=== PATIENT | male | born 1955 | race Caucasian/White ===

== ENCOUNTER 2020-12-01 18:13 | Emergency (ER) | payer MEDICARE, OTHER ==
[2020-12-01] MEDS ORDERED: Sodium Chloride 0.9% 2.5 ML Syringe FLUSH PRN (18:49)
[2020-12-01] MEDS ORDERED: Sodium Chloride 0.9% 10 ML Syringe FLUSH PRN (18:49)
--- NOTE | 2020-12-01 19:28 | EDM.PDOC ---
ED HPI GENERAL MEDICAL PROBLEM - General Chief Complaint: Abdominal Pain Stated Complaint: HERNIA Time Seen by Provider: 12/01/20 19:07 - History of Present Illness INITIAL COMMENTS - FREE TEXT/NARRATIVE: Patient presents with sudden onset of left groin pain followed by syncope. 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 The patient's family friend and And assistant loan processor was at the food truck. Patient was brought to the ED. Patient states that there was a large lump in his left groin consistent with hernia that is now since resolved. No vomiting or diarrhea. No fevers. Patient is scheduled to see his surgeon on the for evaluation of hernia. Patient denies any chest pain or shortness of breath. No recent fevers chills or infectious complaints. No known exacerbating or alleviating factors Lower Abdomen Pain Score (Numeric/FACES): 4 - Related Data Allergies Allergy/AdvReac Type Severity Reaction Status Date / Time No Known Allergies Allergy Verified 12/01/20 18:41 Home Meds: Home Meds atenoloL [Atenolol] 11/14/13 [History] atorvaSTATin [Lipitor] 20 mg PO DAILY 11/14/13 [History] Losartan Potassium [Cozaar] 50 mg PO DAILY 12/01/20 [History] Past Medical History Cardiovascular History: Reports: Hypertension - Past Surgical History GI Surgical History: Reports: Appendectomy Musculoskeletal Surgical History: Reports: Shoulder Surgery Other Musculoskeletal Surgeries/Procedures:: Surgery on right shoulder due to tennis elbow Social & Family History - Recreational Drug Use Recreational Drug Use: No ED ROS GENERAL - Review of Systems Review Of Systems: See Below Constitutional: Reports: No Symptoms. Denies: Fever Respiratory: Denies: Shortness of Breath Cardiovascular: Denies: Chest Pain, Palpitations GI/Abdominal: Denies: Abdominal Pain, Vomiting : Denies: Dysuria, Flank Pain Musculoskeletal: Reports: No Symptoms Skin: Reports: No Symptoms Neurological: Reports: No Symptoms Hematologic/Lymphatic: Reports: No Symptoms ED EXAM, GENERAL - Physical Exam Exam: See Below Free Text/Narrative:: CONSTITUTIONAL: well appearing in no acute distress SKIN: Warm, dry, and intact without rash HENT: Normocephalic, atraumatic, PULMONARY: clear to ausculation bilaterally. No rales, rhonchi, wheezing CARDIOVASCULAR: regular rate, No murmur, rubs, or gallops GASTROINTESTINAL: soft, nondistended, nontender patient near area of left direct inguinal area the pain is but there is no marked hernia here as a direct or indirect hernia. No pulsatile abdominal mass NEUROLOGIC: normal speech, II-XII intact. light touch/5/5 power equal and symmetric in upper and lower extremities without deficit MUSCULOSKELETAL: no gross deformities, atraumatic PSYCHIATRIC: normal mood and affect #1 Interpretation Time: 19:27 EKG Interpretation Comments: EKG: NSR, nonspecific ST/T changes, Rate -59 Course - Vital Signs Text/Narrative:: Inguinal hernia, incarcerated hernia, AAA, diverticulitis, kidney stone, vasovagal syncope, cardiac syncope, other Patient presents as outlined above. Patient with significant amount of intense pain prior to passing out. There is no chest pain or shortness of breath with nonspecific EKG and negative troponin and I do not think that this represents cardiac syncope. The description of the patient's pain is very much consistent with an inguinal hernia which is now reduced. CT scan shows no evidence of alternative etiology. Patient is to follow-up with surgery. Copies of CT scan made for the patient with return precautions and PCP/surgery follow-up discussed Last Recorded V/S: Last Vital Signs Temp 36.0 C L 12/01/20 18:29 Pulse 60 12/01/20 18:29 Resp 16 12/01/20 18:29 BP 104/63 12/01/20 18:29 Pulse Ox 99 12/01/20 18:29 - Orders/Labs/Meds Orders: Active Orders 24 hr Category Date Time Status Sodium Chloride 0.9% [Saline Flush] Med 12/01/20 18:49 Active 10 ml FLUSH ASDIRECTED PRN Sodium Chloride 0.9% [Saline Flush] Med 12/01/20 18:49 Active 2.5 ml FLUSH ASDIRECTED PRN Saline Lock Insert [OM.PC] Stat Oth 12/01/20 18:49 Ordered Medication Orders Sodium Chloride (Sodium Chloride 0.9% 10 Ml Syringe) 10 ml FLUSH ASDIRECTED PRN PRN Reason: Keep Vein Open Last Admin: 12/01/20 20:08 Dose: 10 ml Documented by: ISIDRO Sodium Chloride (Sodium Chloride 0.9% 2.5 Ml Syringe) 2.5 ml FLUSH ASDIRECTED PRN PRN Reason: Keep Vein Open Last Admin: 12/01/20 20:09 Dose: 2.5 ml Documented by: ISIDRO Labs: Laboratory Tests 12/01/20 12/01/20 12/01/20 Range/Units 18:20 19:02 19:02 WBC 6.85 (4.0-11.0) K/uL RBC 4.09 L (4.50-5.90) M/uL Hgb 12.8 L (13.0-17.0) g/dL Hct 37.2 L (38.0-50.0) % MCV 91.0 (80.0-98.0) fL MCH 31.3 (27.0-32.0) pg MCHC 34.4 (31.0-37.0) g/dL RDW Std Deviation 43.4 (28.0-62.0) fl RDW Coeff of Jass 13 (11.0-15.0) % Plt Count 181 (150-400) K/uL MPV 9.40 (7.40-12.00) fL Neut % (Auto) 57.4 (48.0-80.0) % Lymph % (Auto) 30.2 (16.0-40.0) % [place] % (Auto) 7.4 (0.0-15.0) % Eos % (Auto) 4.7 (0.0-7.0) % Baso % (Auto) 0.3 (0.0-1.5) % Neut # (Auto) 3.9 (1.4-5.7) K/uL Lymph # (Auto) 2.1 (0.6-2.4) K/uL [place] # (Auto) 0.5 (0.0-0.8) K/uL Eos # (Auto) 0.3 (0.0-0.7) K/uL Baso # (Auto) 0.0 (0.0-0.1) K/uL Nucleated RBC % 0.0 /100WBC Nucleated RBCs # 0 K/uL Sodium 140 (136-148) mmol/L Potassium 4.4 (3.5-5.1) mmol/L Chloride 103 (98-107) mmol/L Carbon Dioxide 28.8 (21.0-32.0) mmol/L BUN 15 (7.0-18.0) mg/dL Creatinine 1.1 (0.8-1.3) mg/dL Est Cr Clr Drug Dosing 60.93 mL/min Estimated GFR (MDRD) > 60.0 ml/min Glucose 106 (74-106) mg/dL Calcium 8.9 (8.5-10.1) mg/dL Total Bilirubin 0.7 (0.2-1.0) mg/dL AST 26 (15-37) IU/L ALT 31 (14-63) IU/L Alkaline Phosphatase 75 (46-116) U/L Troponin I < 0.050 (0.000-0.056) ng/mL Total Protein 6.2 L (6.4-8.2) g/dL Albumin 3.8 (3.4-5.0) g/dL Globulin 2.4 L (2.6-4.0) g/dL Albumin/Globulin Ratio 1.6 (0.9-1.6) Lipase 129 (73-393) U/L Urine Color YELLOW Urine Appearance CLEAR Urine pH 6.5 (5.0-8.0) Ur Specific [place] 1.020 (1.001-1.035) Urine Protein NEGATIVE (NEGATIVE) mg/dL Urine Glucose (UA) NEGATIVE (NEGATIVE) mg/dL Urine Ketones NEGATIVE (NEGATIVE) mg/dL Urine Occult Blood NEGATIVE (NEGATIVE) Urine Nitrite NEGATIVE (NEGATIVE) Urine Bilirubin NEGATIVE (NEGATIVE) Urine Urobilinogen 0.2 (<2.0) EU/dL Ur Leukocyte Esterase NEGATIVE (NEGATIVE) Urine RBC 0-1 (0-2/HPF) Urine WBC 0-1 (0-5/HPF) Ur Epithelial Cells NOT SEEN (NONE-FEW) Urine Bacteria RARE (NEGATIVE) Meds: Medications Generic Name Dose Route Start Last Admin Trade Name Freq PRN Reason Stop Dose Admin Sodium Chloride 10 ml 12/01/20 18:49 12/01/20 20:08 Sodium Chloride 0.9% 10 Ml Syringe FLUSH 10 ml ASDIRECTED PRN Administration Keep Vein Open Sodium Chloride 2.5 ml 12/01/20 18:49 12/01/20 20:09 Sodium Chloride 0.9% 2.5 Ml Syringe FLUSH 2.5 ml ASDIRECTED PRN Administration Keep Vein Open Discontinued Medications Generic Name Dose Route Start Last Admin Trade Name Frantz PRN Reason Stop Dose Admin Iopamidol 100 ml 12/01/20 20:02 12/01/20 20:03 Iopamidol 755 Mg/Ml 500 Ml Multipack Bottle IVPUSH 12/01/20 20:03 100 ml ONETIME STA Administration Departure - Departure Time of Disposition: 21:47 Disposition: Home, Self-Care 01 Condition: Good Clinical Impression: Abdominal pain, Syncope - Discharge Information Instructions: Inguinal Hernia, Adult, [id number] Referrals: Bakari Madrid MD [Primary Care Provider] - Forms: ED Department Discharge Additional Instructions: Return for recurrence of abdominal pain, fever, chest pain, shortness of breath, lightheadedness, change or worsening condition or lack of improvement. Follow- up with the surgeon next week. Please also give your primary care doctor copy of CT scan results to follow-up with as discussed over the next several months. Sepsis Event Note (ED) - Evaluation Sepsis Screening Result: No Definite Risk - Focused Exam Vital Signs: Vital Signs Temp Pulse Resp BP Pulse Ox 12/01/20 18:29 36.0 C L 60 16 104/63 99
[2020-12-01 19:32] LABS: BLOOD UREA NITROGEN,BUN 15 mg/dL (7.0-18.0); CARBON DIOXIDE,CO2 28.8 mmol/L (21.0-32.0); CHLORIDE,CL 103 mmol/L (98-107); GLUCOSE RANDOM 106 mg/dL (74-106); LIPASE 129 U/L (73-393); POTASSIUM,K 4.4 mmol/L (3.5-5.1); SODIUM,NA 140 mmol/L (136-148)
[2020-12-01] MEDS ORDERED: Iopamidol 755 MG/ML 500 ML Multipack Bottle IVPUSH STA (20:02)
--- NOTE | 2020-12-01 21:33 | CT ---
Indication: Abdominal pain, evaluate for abdominal aortic aneurysm, hernia, kidney stone, diverticulitis or other. Comparison: 06/12/2020. Technique: CTA of the abdomen and pelvis. Findings: Mild atherosclerotic disease. No abdominal aortic aneurysm or dissection. 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 Separate origin of the splenic artery from the aorta. Mild to moderate severity stenosis as the hepatic artery origin. Renal arteries are patent. The RBOOKE is patent. No suspicious findings in the lung base. No pleural effusion or pericardial effusion. Changes related to weight reduction surgery is seen within the stomach. No bowel obstruction. Urinary bladder appears unremarkable. The prostate and seminal vesicles are grossly unremarkable. The kidneys enhance symmetrically without hydronephrosis. No definite renal or ureteral calculi. The patient is status post posterior hardware fusion and decompression between levels L3 and L5. No pancreatitis. A few small splenic granulomas. No free intraperitoneal air or fluid. Impression: 1. Mild atherosclerotic disease without suspicious findings to suggest occlusive arterial mesenteric ischemia. 2. Previous weight reduction surgery. No bowel obstruction. 3. Changes from previous lumbar spine surgery. 4. 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 A follow-up CTA could be obtained in 2 years. Please note that all CT scans at this facility use dose modulation, iterative reconstruction, and/or weight-based dosing when appropriate to reduce radiation dose to as low as reasonably achievable. Dictated by Dominic Hernandez MD @ 12/01/2020 9:32:15 PM (Electronically Signed)
== END 2020-12-01 22:01 | disposition home or self-care (01) ==
LOC: MW.ED 18:13
DX: R10.9 Unspecified abdominal pain (principal); R55 Syncope and collapse; I10 Essential (primary) hypertension; Z79.899 Other long term (current) drug therapy; Z90.49 Acquired absence of other specified parts of digestive tract
CPT/HCPCS: 36415; 74174; 80053; 81001; 83690; 84484; 85025; 93005; 99284; Q9967

== ENCOUNTER 2020-12-11 07:52 | Day surgery (SDC) | payer MEDICARE, OTHER ==
[~2020-12-11 07:52] MED LIST: Bupivacaine 0.5% 10 ML SDV ONE; Dexamethasone 4 MG/ML 5 ML MDV ONE; Lidocaine 2% 5 ML SDV ONE; Midazolam 1 MG/ML 2 ML SDV ONE; Octyl 2-Cyanoacrylate 1 Tube ONE; Ondansetron 4 MG/2 ML SDV ONE; Propofol 200 MG/20 ML SDV ONE; Rocuronium Bromide 50 MG/5 ML Syringe ONE; Sugammadex Sodium 200 MG/2 ML VIAL ONE; fentaNYL 100 MCG/2 ML SDV ONE
[2020-12-11] MEDS ORDERED: ceFAZolin 1 GM Vial ONE (07:56)
[2020-12-11] MEDS ORDERED: Lactated Ringers 1,000 ML IV SCH ×2 (08:00→10:15)
[2020-12-11] MEDS ORDERED: ceFAZolin 2 GM in Premix Bag 1 BAG IV SCH (08:00)
--- NOTE | 2020-12-11 08:28 | PCM.PREANE ---
Preanesthetic Assessment - Procedure Proposed Procedure: Left IHR with Mesh - Anesthesia/Transfusion/Family Hx Anesthesia History: Prior Anesthesia Without Reaction Transfusion History: Prior Transfusion Without Reaction - Review of Systems General: No Symptoms Pulmonary: No Symptoms Cardiovascular: No Symptoms (HTN, HLD) - Physical Assessment NPO Status Date: 12/10/20 NPO Status Time: 21:00 Height: 5 ft 7 in Weight: 78.018 kg ASA Class: 2 Mental Status: Alert & Oriented x3 Airway Class: Mallampati = 3 Dentition: Reports: Normal Dentition Thyro-Mental Finger Breadths: 3 Mouth Opening Finger Breadths: 3 ROM/Head Extension: Full Lungs: Clear to Auscultation, Normal Respiratory Effort Cardiovascular: Regular Rate, Regular Rhythm - Allergies Allergies/Adverse Reactions: Allergies Allergy/AdvReac Type Severity Reaction Status Date / Time No Known Allergies Allergy Verified 12/08/20 10:20 - Acknowledgements Anesthesia Type Planned: General Anesthesia Pt an Appropriate Candidate for the Planned Anesthesia: Yes Alternatives and Risks of Anesthesia Discussed w Pt/Guardian: Yes Pt/Guardian Understands and Agrees with Anesthesia Plan: Yes PreAnesthesia Questionnaire HEENT History: Reports: Other (See Below) Other HEENT History: wears glasses Cardiovascular History: Reports: High Cholesterol, Hypertension Respiratory History: Reports: None Gastrointestinal History: Reports: Other (See Below) Other Gastrointestinal History: occasional heartburn- takes OTC Zantac Genitourinary History: Reports: None Musculoskeletal History: Reports: Back Pain, Chronic, Neck Pain, Chronic Neurological History: Reports: Concussion Other Neuro History: has balance issues Psychiatric History: Reports: None Endocrine/Metabolic History: Reports: None Hematologic History: Reports: None Immunologic History: Reports: None Oncologic (Cancer) History: Reports: None Dermatologic History: Reports: None - Past Surgical History Head Surgeries/Procedures: Reports: None HEENT Surgical History: Reports: Eye Surgery Other HEENT Surgeries/Procedures: 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- several surgerys to repair Respiratory Surgical History: Reports: None GI Surgical History: Reports: Appendectomy, Bariatric Procedure Male Surgical History: Reports: None Endocrine Surgical History: Reports: None Neurological Surgical History: Reports: C-Spine, Lumbar Spine, Spinal Fusion Other Neurological Surgeries/Procedures: neck surgery- has pins, lower back surgery x2- has rods and pins (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) Musculoskeletal Surgical History: Reports: Shoulder Surgery, Other (See Below) Other Musculoskeletal Surgeries/Procedures:: Surgery on right elbow due to tennis elbow, ?shoulder surgery, back surgery x2 and neck surgery Dermatological Surgical History: Reports: None - SUBSTANCE USE Tobacco Use Status *Q: Current Every Day Tobacco User Tobacco Use Within Last Twelve Months: Smokeless Tobacco Recreational Drug Use History: No - HOME MEDS Home Medications: Home Meds atorvaSTATin [Lipitor] 20 mg PO DAILY 11/14/13 [History] Aspirin 325 mg PO DAILY 12/08/20 [History] Losartan/Hydrochlorothiazide [Losartan-HCTZ 50-12.5 MG] 1 tab PO QAM 12/08/20 [History] - CURRENT (IN HOUSE) MEDS Current Meds: Current Medications Cefazolin Sodium/Dextrose 2 gm (/ Premix) 50 mls @ 100 mls/hr IV ONETIME COLLINS Lactated Ringer's (Ringers, Lactated) 1,000 mls @ 125 mls/hr IV ASDIRECTED COLLINS Discontinued Medications Bupivacaine HCl (Bupivacaine 0.5% 10 Ml Sdv) Confirm Administered Dose 20 ml .ROUTE .STK-MED ONE Stop: 12/11/20 07:32 Cefazolin Sodium (Cefazolin 1 Gm Vial) Confirm Administered Dose 1 gm .ROUTE .STK-MED ONE Stop: 12/11/20 07:57 Dexamethasone (Dexamethasone 4 Mg/Ml 5 Ml Mdv) Confirm Administered Dose 40 mg .ROUTE .STK-MED ONE Stop: 12/11/20 07:28 Fentanyl (Fentanyl 100 Mcg/2 Ml Sdv) Confirm Administered Dose 100 mcg .ROUTE .STK-MED ONE Stop: 12/11/20 07:28 Lidocaine (Lidocaine 2% 5 Ml Sdv) Confirm Administered Dose 5 ml .ROUTE .STK-MED ONE Stop: 12/11/20 07:28 Midazolam HCl (Midazolam 1 Mg/Ml 2 Ml Sdv) Confirm Administered Dose 2 mg .ROUTE .STK-MED ONE Stop: 12/11/20 07:28 Octyl Cyanoacrylate (Octyl 2-Cyanoacrylate 1 Tube) Confirm Administered Dose 2 applic .ROUTE .STK-MED ONE Stop: 12/11/20 07:32 Ondansetron HCl (Ondansetron 4 Mg/2 Ml Sdv) Confirm Administered Dose 4 mg .ROUTE .STK-MED ONE Stop: 12/11/20 07:28 Propofol (Propofol 200 Mg/20 Ml Sdv) Confirm Administered Dose 200 mg .ROUTE .STK-MED ONE Stop: 12/11/20 07:28 Rocuronium Kittery (Rocuronium Kittery 50 Mg/5 Ml Syringe) Confirm Administered Dose 50 mg .ROUTE .STK-MED ONE Stop: 12/11/20 07:28 Sugammadex Sodium (Sugammadex Sodium 200 Mg/2 Ml Vial) Confirm Administered Dose 200 mg .ROUTE .STK-MED ONE Stop: 12/11/20 07:28
[2020-12-11] MEDS ORDERED: fentaNYL 100 MCG/2 ML SDV IVPUSH PRN (08:36)
[2020-12-11] MEDS ORDERED: Morphine 2 MG/ML SYRINGE IVPUSH PRN ×2 (08:36→10:18)
[2020-12-11] MEDS ORDERED: HYDROmorphone 1 MG/ML Syringe IVPUSH PRN (08:36)
[2020-12-11] MEDS ORDERED: Ondansetron 4 MG/2 ML SDV IVPUSH PRN ×2 (08:36→10:05)
[2020-12-11] MEDS ORDERED: Metoclopramide 10 MG/2 ML SDV IVPUSH PRN (08:36)
[2020-12-11] MEDS ORDERED: Naloxone 0.4 MG/ML SDV IVPUSH PRN (08:36)
[2020-12-11] MEDS ORDERED: Albuterol 0.083% 2.5 MG/3 ML Neb Soln NEB PRN (08:36)
[2020-12-11] MEDS ORDERED: Sodium Chloride 0.9% 20 ML ONE (08:59)
[2020-12-11] MEDS ORDERED: ePHEDrine 50 MG/ML SDV ONE (08:59)
[2020-12-11] MEDS ORDERED: Acetaminophen/HYDROcodone 325-5 MG Tab PO PRN (10:05)
--- NOTE | 2020-12-11 10:11 | PCM.OPNOTE ---
- General Post-Op/Procedure Note Date of Surgery/Procedure: 12/11/20 Operative Procedure(s): Repair left inguinal hernia with medium Bard PerFix plug and patch Pre Op Diagnosis: Reducible left inguinal hernia Post-Op Diagnosis: Same Anesthesia Technique: General ET Tube (ASA II) Primary Surgeon: Oraico Stoll Maid Supervisor: Javed Goodman Fluid Replacement, Intraop: 900 EBL in mLs: 10 Condition: Good Free Text/Narrative:: DICTATION [id number] CPT CODE 60285
--- NOTE | 2020-12-11 10:12 | PCM.POSTAN ---
POST ANESTHESIA ASSESSMENT - MENTAL STATUS Mental Status: Somnolent - VITAL SIGNS Vital Signs: Last Vital Signs Temp 97.3 F 12/11/20 08:27 Pulse 55 L 12/11/20 08:27 Resp 16 12/11/20 08:27 BP 116/70 12/11/20 08:27 Pulse Ox 97 12/11/20 08:27 - RESPIRATORY Respiratory Status: Respiratory Rate WNL - CARDIOVASCULAR CV Status: Pulse Rate WNL, Blood Pressure Stable - GASTROINTESTINAL GI Status: No Symptoms - PAIN Free Text/Narrative:: Resting comfortably - POST OP HYDRATION Hydration Status: Adequate & Stable
--- NOTE | 2020-12-11 11:23 | PCM48HPAN ---
Post Anesthesia Note - EVALUATION WITHIN 48HRS OF ANESTHETIC Vital Signs in Normal Range: Yes Patient Participated in Evaluation: Yes Respiratory Function Stable: Yes Airway Patent: Yes Cardiovascular Function Stable: Yes Hydration Status Stable: Yes Pain Control Satisfactory: Yes Nausea and Vomiting Control Satisfactory: Yes Mental Status Recovered: Yes Vital Signs: Last Vital Signs Temp 96.4 F L 12/11/20 10:35 Pulse 64 12/11/20 11:20 Resp 16 12/11/20 11:20 BP 138/79 12/11/20 11:20 Pulse Ox 97 12/11/20 11:20 - COMMENTS/OBSERVATIONS Free Text/Narrative:: Pt doing well post-op. VSS. No apparent anesthetic complications. Dr. Manny Madrid
--- NOTE | 2020-12-11 15:33 | OR ---
SURGEON: Oracio Stoll M.D. DATE OF PROCEDURE: 12/11/2020 OPERATION PERFORMED: Repair of left inguinal hernia with medium Bard PerFix plug and patch. PRIMARY SURGEON: Oracio Stoll M.D. HEAD PACKAGER: Workforce Development Specialist: MICHELLE Arevalo student. ANESTHESIA: General endotracheal. ASA CLASSIFICATION: II. PREOPERATIVE DIAGNOSIS: Reducible left inguinal hernia. POSTOPERATIVE DIAGNOSIS: Reducible left inguinal hernia. ESTIMATED BLOOD LOSS: 10 mL. INTRAOPERATIVE FLUID REPLACEMENT: 900 mL of crystalloid. DESCRIPTION OF PROCEDURE: The patient was taken to the operating room and placed on the operating table in the supine position. Time-out was called for appropriate identification of the patient and procedure. Thigh-high TEDs and sequential compression boots were placed. The surgical site had been marked prior to the patient entering the operating room. Time-out was called for appropriate identification of the patient and procedure. Following satisfactory attainment of general endotracheal anesthesia, the abdomen was prepped with DuraPrep solution and sterile drapes were applied. Skin incision was marked out in the left inguinal crease. The skin was now infiltrated with 10 mL of 0.5% Marcaine solution. Skin incision was made in the left inguinal crease and deepened through the subcutaneous tissue obtaining hemostasis with a combination of electrocautery and 3-0 Vicryl ties. Dissection was carried down to the external oblique fascia. This was opened in the direction of its fibers. The cord was then encircled with a Shafer drain. The hernia sac was dissected away from the cord as was a cord lipoma. The cord lipoma was transected with the base being ligated with 3-0 Vicryl and sent for appropriate histologic analysis. Once the hernia sac was reduced, a medium Bard PerFix plug and patch was brought to the operating table. This was soaked in 1% Ancef solution. The plug was placed into the internal ring and secured with interrupted 0 Ethibond sutures. The patch was placed over the defect and secured medially and inferiorly to Wong's ligament transitioning to the inguinal ligament and superiorly to the transversalis fascia. The wings of the patch were brought around the cord and secured laterally with a 0 Ethibond suture. Once all sutures had been placed, they were serially tied. The patient was given a Valsalva maneuver to 35 cm of water and there was no evidence of recurrence. The wound was then inspected for hemostasis and small bleeding sites were electrocoagulated. The wound was then irrigated with 1% Ancef solution. The cord was returned to its anatomic location. The external oblique was closed with running 3-0 Vicryl. Monse fascia was reapproximated with running 3-0 Vicryl. The skin edges were then reapproximated with subcuticular 4-0 Monocryl reinforced with Steri-Strips. Sponge, needle, and instrument counts were all correct. The incision was dressed with a sterile Tegaderm pad. The patient tolerated the procedure well. Following emergence from anesthesia and extubation, he was taken to recovery room in stable condition. COOKIE / MARRY /[id number]
== END 2020-12-11 12:35 | disposition home or self-care (01) ==
LOC: MW.SDS 07:52
PROVIDERS: ATTEND Surgery
DX: K40.90 Unilateral inguinal hernia, without obstruction or gangrene, not specified as recurrent (principal); D17.6 Benign lipomatous neoplasm of spermatic cord; I10 Essential (primary) hypertension; R27.0 Ataxia, unspecified; M48.02 Spinal stenosis, cervical region; E78.00 Pure hypercholesterolemia, unspecified; Z80.1 Family history of malignant neoplasm of trachea, bronchus and lung; Z79.899 Other long term (current) drug therapy; Z98.890 Other specified postprocedural states
CPT/HCPCS: 49505; 88304; A9270; C1781; J0131; J0690; J1100; J2250; J2704; J3490; J7120; 00830; J2405; J3010

== ENCOUNTER 2022-04-22 07:51 | Emergency (ER) | payer MEDICARE, OTHER ==
[2022-04-22] MEDS ORDERED: Aspirin 81 MG Tab.Chew PO ONE (08:23)
[2022-04-22 09:15] LABS: CARBON DIOXIDE,CO2 27.4 mmol/L (21.0-32.0); POTASSIUM,K 4.1 mmol/L (3.5-5.1)
[2022-04-22] MEDS ORDERED: Alum Hydro/Mag Hydro/Simeth XS 15 ML, Lidocaine 2% 5 ML PO ONE ×2 (09:45)
== END 2022-04-22 10:14 | disposition home or self-care (01) ==
LOC: MW.ED 07:51
DX: R07.89 Other chest pain (principal); E78.00 Pure hypercholesterolemia, unspecified; I10 Essential (primary) hypertension; Z79.82 Long term (current) use of aspirin; Z79.899 Other long term (current) drug therapy
CPT/HCPCS: 36415; 71045; 80053; 84484; 85025; 93005; 99285; A9270; 93010; 99283